=== PATIENT | female | born 1940 | race Caucasian/White ===

== ENCOUNTER → 2016-07-11 | Outpatient (CLI) | payer MEDICARE ==
[2016-07-11 09:00] LABS: Calcium 9.6 mg/dL (8.4-10.2); Potassium 5.2 mmol/L (3.5-5.1)
== END | disposition home or self-care (01) ==
LOC: LABPAT 08:18
PROVIDERS: ATTEND Orthopaedic Surgery
DX: Z01.812 Encounter for preprocedural laboratory examination (principal)
CPT/HCPCS: 80048; 87070

== ENCOUNTER 2016-07-17 06:26 | Inpatient (IN) | payer MEDICARE ==
[2016-07-04 12:16] VITALS: BMI 28.3
--- NOTE | 2016-07-16 09:53 | HP ---
DATE OF ADMISSION: CHIEF COMPLAINT: Left knee pain. HISTORY OF PRESENT ILLNESS: The patient is a 76-year-old retired female who presents with progressive left knee pain, worsening over the past several months. She has tried medications and injections with only partial temporary relief. She notes pain along with giving way bother her daily and limit her function. She does use a cane. PAST MEDICAL HISTORY: Significant for diabetes, hypertension, arthritis and heart disease. PAST SURGICAL HISTORY: Significant for previous carpal tunnel release, hysterectomy and knee surgery. CURRENT MEDICATIONS: 1. Aspirin. 2. Digoxin. 3. Hydrochlorothiazide. 4. Glipizide. 5. Lantus. 6. Tylenol. She notes allergies to PENICILLIN. Family history is noncontributory. SOCIAL HISTORY: Negative for current tobacco or alcohol use. A 16-point review of systems otherwise reviewed and is noncontributory. On examination, the patient is approximately 5 foot 3, 156 pounds of mesomorphic habitus. HEENT exam is nonfocal. Neck is supple. She is nontender about the lumbar spine. She has painless passive motion of left hip. Straight leg raise is negative. Active motion left knee -8 to 105 degrees of flexion. She is tender about the medial joint line. Collaterals are stable, Elsy is negative, Joseph's elicits medial pain. She has genu varum alignment. Her distal neurovascular exam appears intact in the left lower extremity. Previous weight-bearing, notch, lateral, and merchant views of the left knee obtained in the office show severe medial and patellofemoral compartment narrowing. IMPRESSION: 1. Left knee severe medial and patellofemoral compartment osteoarthrosis. 2. Diabetes. 3. History of heart disease. RECOMMENDATIONS: I talked to the patient at length regarding her treatment options. At this point, she is severely limited because of pain related to her osteoarthrosis despite extensive conservative measures. After thorough discussion, she opts to proceed with surgery. We will plan to proceed with left total knee arthroplasty. Risks and benefits are discussed at length in layman's terms. We will institute DVT prophylaxis postoperatively. The patient underwent preoperative medical evaluation by Dr. Diaz in addition to a her planer hand, Dr. Marquez Coronado.
[~2016-07-17 06:26] MED LIST: ACETAMINOPHEN TAB 500 MG TAB PO ONE; CLINDAMYCIN 900 MG in DEXTROSE 5% IN WATER 50 ML IVPB ONE; HYDROmorphone 1 MG/ML 1 ML SYRINGE IVP PRN; MELOXICAM 7.5 MG TAB PO ONE; MIDAZOLAM 2 MG/2 ML VIAL IV PRN; ONDANSETRON 4 MG/2 ML VIAL IVP ONE; TRANEXAMIC ACID 1,000 MG in SODIUM CHLORIDE 0.9% 100 ML IVPB ONE
[2016-07-17] MEDS: LACTATED RINGERS 1,000 ML IV SCH (06:53)
[2016-07-17] MEDS ORDERED: LIDOCAINE 1% 20 ML VIAL (10MG/ML) FOR IV START INTRADERMA ONE (06:53)
[2016-07-17 07:04] LABS: Glucose,Whole Blood 121 mg/dL (75-99)
[2016-07-17] MEDS ORDERED: ROPIVACAINE 246.25 MG, EPINEPHrine 0.5 MG, KETOROLAC 30 MG, cloNIDine HCL/PF 80 MCG, WA... MISCELLANE ONE ×5 (07:56)
[2016-07-17] MEDS ORDERED: PROPOFOL 10 MG/ML 20 ML VIAL IV ONE (07:58)
[2016-07-17] MEDS ORDERED: MIDAZOLAM 2 MG/2 ML VIAL ONE (07:58)
[2016-07-17] MEDS ORDERED: ePHEDrine 50 MG/ML 1 ML AMP ONE (07:58)
[2016-07-17] MEDS ORDERED: SODIUM CHLORIDE 0.9% 100 ML BAG ONE (07:58)
[2016-07-17] MEDS ORDERED: TRANEXAMIC ACID 1,000 MG/10 ML VIAL ONE (07:58)
[2016-07-17] MEDS ORDERED: fentaNYL (PF) 50 MCG/ML 2 ML AMP ONE (07:58)
[2016-07-17] MEDS ORDERED: CLINDAMYCIN 1,800 MG in SODIUM CHLORIDE 0.9% IRRIGATIO 3,000 ML IRRIGATION ONE (08:25)
[2016-07-17] MEDS ORDERED: ROPIVACAINE 1,100 MG, SODIUM CHLORIDE 0.9% 330 ML MISCELLANE PRN ×2 (08:25)
--- NOTE | 2016-07-17 08:27 | P.ONQ ---
Anesthesiology Proc Note - PNB - Peripheral Nerve Block Performed Left Adductor Canal Infusion Indication: Acute Post-Operative Pain, Dx/Pain Location (Left knee) Specifically requested for management of pain by : Garland Dockery Sedation Type: Sedate with meaningful contact maintained Preparation: Sterile Dressing Position: Supine Catheter: Indwelling Needle Types: Other (see comment) (Pajunk) Needle Size: 100mm (4") Technique: Ultrasound Injectate: 0.5% Ropivacaine (see comment for volume) (30cc) Blood Aspirated: No Pain Paresthesia on Injection Noted: No Resistance on Injection: Normal Events: Uneventful and Well Tolerated
[2016-07-17] MEDS ORDERED: LACTATED RINGERS 1,000 ML IV ONE ×2 (09:17)
[2016-07-17] MEDS ORDERED: ONDANSETRON 4 MG/2 ML VIAL IVP PRN (09:41)
[2016-07-17] MEDS ORDERED: HYDROcodone/APAP 5-325MG 1 EACH TAB PO PRN (09:41)
[2016-07-17] MEDS ORDERED: MAGNESIUM HYDROXIDE 2,400 MG/10 ML CUP PO PRN (09:41)
[2016-07-17] MEDS ORDERED: HYDROmorphone 1 MG/ML 1 ML SYRINGE IVP PRN ×2 (09:41)
[2016-07-17] MEDS ORDERED: NALOXONE 0.4 MG/ML 1 ML VIAL IV PRN (09:41)
[2016-07-17] MEDS ORDERED: traMADol 50 MG TAB PO PRN (09:41)
--- NOTE | 2016-07-17 09:53 | P.DS ---
Providers Date of admission: 07/17/16 06:26 Expected date of discharge: 07/19/16 Attending physician: Garland Dockery Consults: 07/17/16 09:41 Consult Physician Routine Consulting Provider: Ana Simental Consult Reason/Comments: Medical management Do you want consulting provider notified?: Yes Primary care physician: Dasia Diaz [facility] Course: Date of admission: 07/17/2016 Date of discharge: 07/19/2016 Admission diagnosis: Status post left total knee arthroplasty Discharge diagnosis: Same Attending physician: Dr. Dockery Surgical procedures: Left total knee arthroplasty Brief history: Patient is a 76-year-old female with a history of progressive primary left knee osteoarthritis. At this point patient has failed conservative treatment measures and has opted to proceed with a elective left total knee arthroplasty. Hospital course: Details of patient's surgery can be found in operative report. Patient tolerated the procedure well and was subsequently transported to orthopedic floor. Patient's orthopeidc and medical care was provided daily. Patient had daily laboratory tests performed for evaluation of overall blood counts. Patient had daily physical therapy to include strengthening range of motion as well as education with walker ambulation. Patient had daily CPM usage as part of their physical therapy program. Patient was treated with Xarelto for their postoperative DVT prophylaxis during their inpatient stay. Patient was noted to have a relatively uneventful postoperative course. Patient reported satisfactory pain control with oral pain medications by postoperative day 0. Patient showed satisfactory progress with physical therapy. Patient moved steadily through the program and had no difficulty meeting the goals by postoperative day 2. Given patient's otherwise satisfactory course and having met physical therapy goals, plan is to discharge patient home on postoperative day 2. Discharge condition/disposition: Patient will be discharged home in stable condition. Discharge medications: Instructions are given on resumption of patient's normal daily medications per primary care recommendation, in addition patient will be prescribed [place] 5mg/325, Tramadol 50mg, Colace 100mg, Pepcid 20mg, Xarelto 10mg. Discharge instructions: 1. Wound care and infection precautions, keep incision dry and covered while showering, no lotions, creams, moisturizers. No soaking, tubs, pools, hottubs. Do not scrub over the incision. 2. Weight-bear as tolerated with walker / cane until follow-up. 3. Ice and elevate when necessary. Do not exceed 20 minutes per hour with ice pack. 4. Utilize compression sleeve until seen at first follow up appointment. 5. Visiting nursing care. 6. Home physical therapy [including home CPM]. 7. Pain meds and anticoagulants per prescription. 8. Pain medication has potential to cause constipation. Increase oral fluid and fiber intake. Contact primary care provider if you have not had a bowel movement within 48 hours after discharge 9. No anti-inflammatory medication until discussed at first post operative visit, this including Motrin, Aleve, Mobic, Diclofenac. 10. Follow up in office at 2 weeks postop with Kelechi Hines PA-C 11. Follow up with your primary care doctor 7-10 days after discharge. 12. Contact [facility] with any questions, . Procedures: Left total knee arthroplasty Patient Condition at Discharge: Good Plan - Discharge Summary New Discharge Prescriptions: New Rivaroxaban [Xarelto] 10 mg PO DAILY #12 tab Docusate [Colace] 100 mg PO DAILY #30 capsule Famotidine [Pepcid] 20 mg PO DAILY #30 tablet Hydrocodone/Acetaminophen [[place] 5-325] 1 - 2 each PO Q6HR PRN #60 tab PRN Reason: Pain traMADol HCl [Ultram] 50 mg PO Q6H PRN #40 tab PRN Reason: Pain No Action metFORMIN HCL [Glucophage] 1,000 mg PO BID Insulin Glargine [Lantus] 25 unit SQ HS Aspirin 81 mg PO DAILY glipiZIDE [Glucotrol] 5 mg PO DAILY Lisinopril-Hctz 20-25 mg [Zestoretic 20-25] 1 tab PO DAILY metFORMIN HCL [Metformin HCl] 500 mg PO DAILY@1200,1800 Cholecalciferol (Vitamin D3) [Vitamin D3] 2,000 unit PO DAILY Acetaminophen Tab [Tylenol Tab] 1,000 mg PO Q6HR PRN PRN Reason: Pain Sulfamethox-Tmp 800-160Mg [Bactrim DS 800-160 mg] 1 tab PO Q12HR Discharge Medication List Aspirin 81 mg PO DAILY 12/11/13 [History] Insulin Glargine [Lantus] 25 unit SQ HS 12/11/13 [History] glipiZIDE [Glucotrol] 5 mg PO DAILY 12/11/13 [History] metFORMIN HCL [Glucophage] 1,000 mg PO BID 12/11/13 [History] Acetaminophen Tab [Tylenol Tab] 1,000 mg PO Q6HR PRN 07/04/16 [History] Cholecalciferol (Vitamin D3) [Vitamin D3] 2,000 unit PO DAILY 07/04/16 [History] Lisinopril-Hctz 20-25 mg [Zestoretic 20-25] 1 tab PO DAILY 07/04/16 [History] Sulfamethox-Tmp 800-160Mg [Bactrim DS 800-160 mg] 1 tab PO Q12HR 07/04/16 [ History] metFORMIN HCL [Metformin HCl] 500 mg PO DAILY@1200,1800 07/04/16 [History] Rivaroxaban [Xarelto] 10 mg PO DAILY #12 tab 07/17/16 [Rx] Docusate [Colace] 100 mg PO DAILY #30 capsule 07/19/16 [Rx] Famotidine [Pepcid] 20 mg PO DAILY #30 tablet 07/19/16 [Rx] Hydrocodone/Acetaminophen [[place] 5-325] 1 - 2 each PO Q6HR PRN #60 tab 07/19/16 [Rx] traMADol HCl [Ultram] 50 mg PO Q6H PRN #40 tab 07/19/16 [Rx] Follow up Appointment(s)/Referral(s): Shawn Hines PAC [PHYSICIAN [employer]Y [employer]NER] - 1 Week Activity/Diet/Wound Care/Special Instructions: Orthopedic Discharge Instructions: 1. Wound care and infection precautions, keep incision dry and covered while showering, no lotions, creams, moisturizers. No soaking, pools, hot tubs. Do not scrub over incision. 2. Weight-bear as tolerated with walker / cane until follow-up. 3. Ice and elevate when necessary. Do not exceed 20 minutes per hour with ice pack. 4. Utilize compression sleeve until seen at first follow up appointment. 5. Visiting nursing care. 6. Home physical therapy including home CPM. 7. Pain meds and anticoagulants per prescription. 8. Pain medication has potential to cause constipation. Increase oral fluid and fiber intake. Contact primary care provider if you have not had a bowel movement within 48 hours after discharge. 9. No anti-inflammatory medication until discussed at first post operative visit, this including Motrin, Aleve, Mobic, Diclofenac. 10. Follow up in office at 2 weeks postop with Kelechi Hines PA-C 11. Follow up with your primary care doctor 7-10 days after discharge. 12. Contact [facility] with any questions, . Rose Marie has been authorized-YULISSA#[id number], copay is $18, can pickle maker at [facility] at discharge. Discharge Disposition: HOME WITH HOME HEALTH SERVICES
[2016-07-17 10:12] LABS: Glucose,Whole Blood 165 mg/dL (75-99)
--- NOTE | 2016-07-17 10:14 | P.OP ---
Date of Procedure: 07/17/16 Preoperative Diagnosis: Severe left knee tricompartmental osteoarthrosis Postoperative Diagnosis: Same Procedure(s) Performed: Left total knee arthroplasty/cemented/cruciate retaining Implants: Depuy Attune size 4 narrow cemented femoral component, size 3 cemented tibial component, 9 mm articular surface, 32 mm cemented patellar component. Anesthesia: MAC, regional, local Surgeon: Garland Dockery .Net Programmer #1: Shawn Hines Estimated Blood Loss (ml): 30 Pathology: other (Bone fragments) Condition: stable Disposition: PACU Indications for Procedure: The patient's a 76-year-old female who presents with progressive left knee pain secondary to osteoarthrosis despite conservative measures. A discussion of the risks and benefits of operative intervention versus continued conservative measures was made with patient. She opted to proceed with surgery. Operative risks to include infection, neurovascular injury, development of blood clots, possible component loosening, possible component failure need for subsequent procedures was discussed. Informed consent was obtained. Operative Findings: As below Description of Procedure: The patient was brought to the operating room, and after induction of spinal anesthesia the left lower extremity was prepped and draped in normal fashion. The tourniquet was inflated to 270 mmHg. A longitudinal incision extending 3 finger breaths above the superior pole of patella was then made extending to the medial aspect the tibial tubercle. A medial parapatellar arthrotomy was performed. The medial soft tissues to include the superficial and deep portions the medial collateral ligament as well as the medial hamstring tendons were elevated subperiosteally. The proximal medial tibial osteophytes were carefully removed. The patella was everted. A portion of the retropatellar fat pad was excised sharply. The anterior cruciate ligament was sacrificed. A starting hole was made in the distal femur 1 cm anterior to the posterior cruciate ligament origin. An intramedullary femoral guide was then gently inserted planning on 5 valgus distal cut with 9 mm distal resection. The cutting block was pinned in place. The distal cut was then made. The posterior referencing sizing guide was utilized. I felt size 4 was most appropriate. 3 of external rotation was built into the system and verified off the trans-epicondylar axis and the posterior condyles. The cutting block was pinned in place. The anterior, posterior, and chamfer cuts were then made. Bone fragments were removed. The notch guide was utilized and the notch cut made. The trial size 4 femoral component was placed and was fully seated. There was good anterior to posterior and medial to lateral fit. The distal peg holes were then drilled. The trial component was then removed. Attention was then paid towards preparing the proximal tibia. The extra medullary guide was in line with the tibial shaft and second metatarsal distally. I planned on 2 mm resection from the medial compartment. The cutting block was pinned in place. The posterior cruciate ligament was protected with a retractor. The proximal tibial cut was then made. An additional 2 mm was resected as the flexion and extension gaps were tight. The tibia sized most appropriate size 3. Remnants of the medial lateral menisci were excised the capsule junction with electrocautery. The trial femoral and tibial components were placed along with a 9 mm articular surface. I was able to obtain full flexion and extension with good stability with varus and valgus stress. After several flexion and extension cycles the tibial rotation was marked with electrocautery in line with the medial one third of the tibial tubercle. Attention was then paid towards preparing the patella. A patella reamer was utilized taking this down to 14 mm of bone stock. A good flush cut was made. The patella sized most appropriately at 32 mm. The peg holes were drilled. The trial components placed. The knee was taken through range of motion. I good patellofemoral tracking with no hands technique. The trial components were then removed. The posterior osteophytes of the distal femur were carefully removed with a curved osteotome. The tibia was prepared in the appropriate rotation with appropriate drill and keel punch. The flexion and extension gaps were checked and felt to be symmetric. The posterior soft tissues were injected with ropivacaine. The bony surfaces were prepared with pulsatile lavage and then dried. The tibial component was then cemented in placed and was fully seated. Excess cement was removed. The femoral component cemented in placed and was fully seated. Excess cement was removed. The trial 9 mm articular surface was placed and the knee was put in full extension. The patella component cemented in placed and was fully seated. Excess cement was removed. After the cement had sufficiently hardened, the knee was again taken through range of motion. Again I was able to obtain full flexion and extension with good stability with varus and valgus stress. The trial 9 mm articular surface was removed and the final one inserted. This was fully seated. Care was taken to avoid any soft tissue interposition. Pulsatile lavage was again utilized. The medial parapatellar arthrotomy was closed with #2 Ethibond suture. A deep drain was placed exiting laterally. The tourniquet was deflated the proximal a 70 minutes total tourniquet time. The subcutaneous tissues reapproximated interrupted 2-0 Vicryl sutures. The skin was reapproximated with 3-0 subcuticular strata fix suture. Skin tape and adhesive was applied. A sterile dressing was applied. The patient was awoken from sedation and transferred to recovery room in good condition. Blood loss was estimated 30 mL. No complications were incurred. Sponge and needle counts were correct at the end the case.
--- NOTE | 2016-07-17 10:26 | XR ---
EXAMINATION TYPE: XR knee limited LT DATE OF EXAM ORDERED: 07/17/2016 HISTORY: Left knee arthroplasty. COMPARISON: None. FINDINGS: A left knee arthroplasty has been performed. Prosthetic elements appear in good position. One surgical drain is in place. There is subcutaneous and intra-articular air. IMPRESSION: STATUS POST LEFT ARTHROPLASTY.
[2016-07-17 11:44] LABS: Glucose,Whole Blood 208 mg/dL (75-99)
[2016-07-17 13:14] VITALS: RESP 16
--- NOTE | 2016-07-17 13:50 | P.CONS ---
History of Present Illness - Reason for Consult Consult date: 07/17/16 Medical management Requesting physician: Garland Dockery - Chief Complaint Left knee osteoarthritis - History of Present Illness This is a 76-year-old female with past medical history noted below significant for severe left knee osteoarthritis that failed conservative management. Patient was admitted to the hospital and underwent elective total left knee arthroplasty. She is postoperative day #0. She is awake and alert today. She does not have any specific concerns or complaints. I was asked to see her for medical management. Review of Systems Review of system: 14 points review of systems were obtained and were negative except to what were mentioned in the HPI. Past Medical History Past Medical History: Diabetes Mellitus, Hyperlipidemia, Hypertension, Osteoarthritis (OA), Supraventricular Tachycardia (SVT) Additional Past Medical History / Comment(s): SVT 12/2013, HAD ABLATION. VARICOSE VEINS. CURRENT UTI, ON PO AB RX. History of Any Multi-Drug Resistant Organisms: None Reported Past Surgical History: Ablation, Hysterectomy Additional Past Surgical History / Comment(s): CARDIAC ABLATION 12/2013. COLONOSCOPY. Past Anesthesia/Blood Transfusion Reactions: No Reported Reaction Past Psychological History: No Psychological Hx Reported Smoking Status: Never smoker Past Alcohol Use History: None Reported Past Drug Use History: None Reported - Past Family History Father Family Medical History: Deep Vein Thrombosis (DVT), Pulmonary Embolus Medications and Allergies Home Medications Medication Instructions Recorded Confirmed Type Aspirin 81 mg PO DAILY 12/11/13 07/17/16 History Insulin Glargine [Lantus] 25 unit SQ HS 12/11/13 07/17/16 History glipiZIDE [Glucotrol] 5 mg PO DAILY 12/11/13 07/17/16 History metFORMIN HCL [Glucophage] 1,000 mg PO BID 12/11/13 07/17/16 History Acetaminophen Tab [Tylenol Tab] 1,000 mg PO Q6HR PRN 07/04/16 07/17/16 History Cholecalciferol (Vitamin D3) 2,000 unit PO DAILY 07/04/16 07/17/16 History [Vitamin D3] Lisinopril-Hctz 20-25 mg 1 tab PO DAILY 07/04/16 07/17/16 History [Zestoretic 20-25] Sulfamethox-Tmp 800-160Mg [Bactrim 1 tab PO Q12HR 07/04/16 07/17/16 History DS 800-160 mg] metFORMIN HCL [Metformin HCl] 500 mg PO DAILY@1200,1800 07/04/16 07/17/16 History Allergies Allergy/AdvReac Type Severity Reaction Status Date / Time Penicillins Allergy Severe Swelling, Verified 07/04/16 11:41 hives Glmuwtd-Ciu-Iti Reductase AdvReac Severe "CHARLEY-HORSES Verified 07/04/16 11:41 Inhibitor IN LEGS" Physical Exam Vitals: Vital Signs Temp Pulse Pulse Pulse Resp BP BP 07/17/16 12:45 90 115/55 07/17/16 12:30 87 111/45 07/17/16 12:15 75 109/60 07/17/16 12:00 68 119/55 07/17/16 11:45 69 116/67 07/17/16 11:30 97.5 F L 80 16 115/60 07/17/16 10:45 76 18 110/55 07/17/16 10:30 81 16 109/60 07/17/16 10:19 80 16 109/54 07/17/16 10:04 98 F 90 16 110/54 07/17/16 06:40 97.6 F 85 16 192/84 Pulse Ox 07/17/16 12:45 98 07/17/16 12:30 98 07/17/16 12:15 98 07/17/16 12:00 98 07/17/16 11:45 98 07/17/16 11:30 98 07/17/16 10:45 97 07/17/16 10:30 94 L 07/17/16 10:19 95 07/17/16 10:04 97 07/17/16 06:40 100 Intake and Output 07/16/16 07/17/16 07/17/16 22:59 06:59 14:59 Intake Total 500 1007 Output Total 320 Balance 500 687 Intake: IV 500 1007 Output: Urine 290 Estimated Blood Loss 30 Other: Weight 72.575 kg Patient Weight 07/18/16 06:59 Weight 72.575 kg General: The patient is awake and alert, in no distress Eye: there is normal conjunctiva bilaterally. Neck: The neck is supple, there is no JVD. Cardiovascular: Normal S1-S2, no S3-S4, no murmurs. Respiratory: Lungs clear to auscultation bilaterally Gastrointestinal: Abdomen is soft, nontender Musculoskeletal: There is no pedal edema. Neurological:. Speech is normal. Skin: Skin is warm and dry Results CBC & Chem 7: 07/17/16 06:50 Labs: Abnormal Lab Results - Last 24 Hours (Table) 07/17/16 07/17/16 07/17/16 Range/Units 06:49 10:09 11:38 POC Glucose (mg/dL) 121 H 165 H 208 H (75-99) mg/dL Assessment and Plan Plan: 1. Severe osteoarthritis of the left knee postoperative day #1 status post total left knee arthroplasty 2. DVT prophylaxis with Rivaroxaban per orthopedic protocol 3. Type 2 diabetes mellitus: Continue home dose of Lantus. Hold oral agents for now 4. Essential hypertension: Blood pressure well controlled Today, I reviewed her medication list and lab work results. Continue current regimen. Thank you very much for the consultation. I will continue to follow up on the patient closely.
[2016-07-17] MEDS: CLINDAMYCIN 900 MG in DEXTROSE 5% IN WATER 50 ML IVPB SCH ×4 (15:23→21:05)
[2016-07-17 16:50] LABS: Glucose,Whole Blood 319 mg/dL (75-99)
[2016-07-17] MEDS: INSULIN LISPRO (humaLOG) 300 UNIT/3 ML VIAL SQ SCH ×2 (17:56→21:06)
[2016-07-17 20:42] LABS: Glucose,Whole Blood 271 mg/dL (75-99)
[2016-07-17] MEDS: SENNOSIDES-DOCUSATE SODIUM 1 EACH TAB PO SCH (21:05)
[2016-07-17] MEDS: INSULIN GLARGINE 100 UNIT/ML 10 ML VIAL SQ SCH (21:10)
[2016-07-18 07:00] LABS: Glucose,Whole Blood 159 mg/dL (75-99)
[2016-07-18 07:20] LABS: Basophils % (A) 0 %; CH 27.5; Eosinophils % (A) 0 %; HCT 28.4 % (34.0-46.0); HDW 2.64; HGB 9.3 gm/dL (11.4-16.0); Luc # (Auto) 0.26; Luc % (Auto) 3; Lymphocytes # (A) 2.1 k/uL (1.0-4.8); Lymphocytes % (A) 25 %; MCH 27.2 pg (25.0-35.0); MCHC 32.6 g/dL (31.0-37.0); MCV 83.4 fL (80.0-100.0); Mean Platelet Volume 7.3; Monocytes # (A) 0.5 k/uL (0-1.0); Monocytes % (A) 6 %; Neutrophils # (A) 5.6 k/uL (1.3-7.7); Neutrophils % (A) 66 %; RBC 3.41 m/uL (3.80-5.40); RDW 13.7 % (11.5-15.5); WBC 8.5 k/uL (3.8-10.6); WBC (Perox) 8.59
[2016-07-18 07:36] LABS: Anion Gap 5 mmol/L; Blood Urea Nitrogen 19 mg/dL (7-17); Calcium 8.5 mg/dL (8.4-10.2); Carbon Dioxide 27 mmol/L (22-30); Chloride 101 mmol/L (98-107); Glucose 140 mg/dL (74-99); Non-African American GFR(MDRD) >60 (>60 ml/min/1.73 sqM); Potassium 4.1 mmol/L (3.5-5.1); Sodium 133 mmol/L (137-145)
[2016-07-18] MEDS: ACETAMINOPHEN TAB 325 MG TAB PO PRN ×2 (07:54→14:49)
[2016-07-18] MEDS: CHOLECALCIFEROL 1,000 UNIT TAB PO SCH (07:55)
[2016-07-18] MEDS: LISINOPRIL-HCTZ 20-25 MG 1 EACH TAB PO SCH (07:55)
[2016-07-18] MEDS: RIVAROXABAN 10 MG TAB PO SCH (07:55)
[2016-07-18] MEDS: INSULIN LISPRO (humaLOG) 300 UNIT/3 ML VIAL SQ SCH ×4 (08:15→21:56)
[2016-07-18] MEDS: FAMOTIDINE 20 MG TAB PO SCH (09:56)
--- NOTE | 2016-07-18 11:06 | P.PN ---
Subjective Patient is doing fairly well today. She was up with physical therapy earlier with no difficulty. Pain is well controlled. Objective - Vital Signs Vital signs: Vital Signs Temp 97.6 F 07/18/16 07:00 Pulse 65 07/18/16 07:00 Resp 16 07/18/16 07:00 BP 103/56 07/18/16 07:00 Pulse Ox 95 07/18/16 07:00 Intake & Output 07/17/16 07/18/16 07/18/16 18:59 06:59 18:59 Intake Total 1167 660 240 Output Total 1070 390 200 Balance 97 270 40 Weight 72.575 kg Intake: IV 1007 Intake, IV Titration 160 480 Amount Lactated Ringers 1,000 ml 160 480 @ 40 mls/hr IV .Q24H [facility] Rx#:[id number] Oral 180 240 Output: Drainage 40 Left Knee 40 Urine 1040 350 200 Uretheral (Russo) 200 Estimated Blood Loss 30 Other: Voiding Method Indwelling Catheter Indwelling Catheter Indwelling Catheter - Exam General: The patient is awake and alert, in no distress Eye: there is normal conjunctiva bilaterally. Neck: The neck is supple, there is no JVD. Cardiovascular: Normal S1-S2, no S3-S4, no murmurs. Respiratory: Lungs clear to auscultation bilaterally Gastrointestinal: Abdomen is soft, nontender Musculoskeletal: There is no pedal edema. Neurological:. Speech is normal. Skin: Skin is warm and dry - Labs CBC & Chem 7: 07/18/16 06:56 07/18/16 06:56 Labs: Abnormal Lab Results - Last 24 Hours (Table) 07/17/16 07/17/16 07/17/16 Range/Units 11:38 16:48 20:37 RBC (3.80-5.40) m/uL Hgb (11.4-16.0) gm/dL Hct (34.0-46.0) % Sodium (137-145) mmol/L BUN (7-17) mg/dL Glucose (74-99) mg/dL POC Glucose (mg/dL) 208 H 319 H 271 H (75-99) mg/dL 07/18/16 07/18/16 07/18/16 Range/Units 06:56 06:56 06:58 RBC 3.41 L (3.80-5.40) m/uL Hgb 9.3 L (11.4-16.0) gm/dL Hct 28.4 L (34.0-46.0) % Sodium 133 L (137-145) mmol/L BUN 19 H (7-17) mg/dL Glucose 140 H (74-99) mg/dL POC Glucose (mg/dL) 159 H (75-99) mg/dL Assessment and Plan Plan: 1. Severe osteoarthritis of the left knee postoperative day #1 status post total left knee arthroplasty 2. DVT prophylaxis with Rivaroxaban per orthopedic protocol 3. Type 2 diabetes mellitus: Continue home dose of Lantus. Hold oral agents for now 4. Essential hypertension: Blood pressure well controlled Today, I reviewed her medication list and lab work results. Continue current regimen. Thank you very much for the consultation. I will continue to follow up on the patient closely.
[2016-07-18 11:18] LABS: Glucose,Whole Blood 158 mg/dL (75-99)
--- NOTE | 2016-07-18 11:24 | P.PN ---
Subjective Principal diagnosis: Status post left total knee arthroplasty Patient is seen today resting in her hospital chair, she appears comfortable. Patient's pain is well-controlled. She's ambulated well at this point. She denies any headaches, lightheadedness, chest pain, shortness of breath, fever or chills. Objective - Vital Signs Vital signs: Vital Signs Temp 97.6 F 07/18/16 07:00 Pulse 65 07/18/16 07:00 Resp 16 07/18/16 07:00 BP 103/56 07/18/16 07:00 Pulse Ox 95 07/18/16 07:00 Intake & Output 07/17/16 07/18/16 07/18/16 18:59 06:59 18:59 Intake Total 1167 660 240 Output Total 1070 390 200 Balance 97 270 40 Weight 72.575 kg Intake: IV 1007 Intake, IV Titration 160 480 Amount Lactated Ringers 1,000 ml 160 480 @ 40 mls/hr IV .Q24H MARLO Rx#:[id number] Oral 180 240 Output: Drainage 40 Left Knee 40 Urine 1040 350 200 Uretheral (Russo) 200 Estimated Blood Loss 30 Other: Voiding Method Indwelling Catheter Indwelling Catheter Indwelling Catheter - Exam Left lower extremity: Incision is clean, dry and intact. Calf is soft, no tenderness with palpation. Plantar flexion, dorsiflexion, EHL, FHL are intact. Sensory exam to light touch is intact throughout the lower extremity, cap refills less than 2 seconds. - Labs CBC & Chem 7: 07/18/16 06:56 07/18/16 06:56 Labs: Abnormal Lab Results - Last 24 Hours (Table) 07/17/16 07/17/16 07/17/16 Range/Units 11:38 16:48 20:37 RBC (3.80-5.40) m/uL Hgb (11.4-16.0) gm/dL Hct (34.0-46.0) % Sodium (137-145) mmol/L BUN (7-17) mg/dL Glucose (74-99) mg/dL POC Glucose (mg/dL) 208 H 319 H 271 H (75-99) mg/dL 07/18/16 07/18/16 07/18/16 Range/Units 06:56 06:56 06:58 RBC 3.41 L (3.80-5.40) m/uL Hgb 9.3 L (11.4-16.0) gm/dL Hct 28.4 L (34.0-46.0) % Sodium 133 L (137-145) mmol/L BUN 19 H (7-17) mg/dL Glucose 140 H (74-99) mg/dL POC Glucose (mg/dL) 159 H (75-99) mg/dL 07/18/16 Range/Units 11:16 RBC (3.80-5.40) m/uL Hgb (11.4-16.0) gm/dL Hct (34.0-46.0) % Sodium (137-145) mmol/L BUN (7-17) mg/dL Glucose (74-99) mg/dL POC Glucose (mg/dL) 158 H (75-99) mg/dL Assessment and Plan Plan: Assessment: 1. Postop day #1 status post left total knee arthroplasty Plan: 1. Pain control, continue use of oral medication 2. Continue work with physical therapy and use of CPM 3. Daily dressing changes/ice and elevate 4. Encourage incentive spirometer 5. GI and DVT prophylaxis, continue Xarelto 10 mg 6. Medical recommendations 7. Discharge planning: Patient will be likely discharged home tomorrow Time with Patient: Less than 30
[2016-07-18 11:55] LABS: Hemoglobin A1C 7.1 % (4.2-6.1)
[2016-07-18 17:05] LABS: Glucose,Whole Blood 140 mg/dL (75-99)
--- NOTE | 2016-07-18 18:27 | P.PN ---
Progress Note - Text The patient is status post left adductor canal catheter placement. The catheter was placed for postoperative pain control, status post total left arthroplasty. Ropivacaine 0.2% is infusing at 8 mLs per hour. The patient has no complaints of left lower extremity numbness or weakness. Patient's VAS score is 0 1-10. Assessment: Patient's adductor canal catheter is in place and working appropriately. Plan: continue infusion and adjust it as needed.
[2016-07-18 21:56] LABS: Glucose,Whole Blood 237 mg/dL (75-99)
[2016-07-18] MEDS: SENNOSIDES-DOCUSATE SODIUM 1 EACH TAB PO SCH (21:56)
[2016-07-18] MEDS: INSULIN GLARGINE 100 UNIT/ML 10 ML VIAL SQ SCH (21:57)
[2016-07-18] MEDS: HYDROcodone/APAP 5-325MG 1 EACH TAB PO PRN (22:00)
[2016-07-19] MEDS: LACTATED RINGERS 1,000 ML IV SCH ×2 (05:06→07:09)
[2016-07-19] MEDS: HYDROcodone/APAP 5-325MG 1 EACH TAB PO PRN ×2 (06:32→13:09)
[2016-07-19 07:21] LABS: Glucose,Whole Blood 159 mg/dL (75-99)
[2016-07-19 07:54] LABS: Anion Gap 6 mmol/L; Blood Urea Nitrogen 16 mg/dL (7-17); Calcium 8.6 mg/dL (8.4-10.2); Carbon Dioxide 27 mmol/L (22-30); Chloride 101 mmol/L (98-107); Glucose 149 mg/dL (74-99); Non-African American GFR(MDRD) >60 (>60 ml/min/1.73 sqM); Sodium 134 mmol/L (137-145)
[2016-07-19] MEDS: INSULIN LISPRO (humaLOG) 300 UNIT/3 ML VIAL SQ SCH ×2 (08:03→12:57)
[2016-07-19] MEDS: CHOLECALCIFEROL 1,000 UNIT TAB PO SCH (08:33)
[2016-07-19] MEDS: FAMOTIDINE 20 MG TAB PO SCH (08:34)
[2016-07-19] MEDS: RIVAROXABAN 10 MG TAB PO SCH (08:34)
[2016-07-19] MEDS: LISINOPRIL-HCTZ 20-25 MG 1 EACH TAB PO SCH (08:34)
--- NOTE | 2016-07-19 09:26 | P.PN ---
Subjective Principal diagnosis: Status post left total knee arthroplasty Patient is seen today resting in her hospital chair, she appears comfortable. Patient has slight increasing pain today. She denies any headaches, lightheadedness, chest pain, shortness of breath, fever or chills. Objective - Vital Signs Vital signs: Vital Signs Temp 98.0 F 07/19/16 07:00 Pulse 73 07/19/16 07:00 Resp 16 07/19/16 07:00 BP 152/66 07/19/16 07:00 Pulse Ox 96 07/19/16 07:00 Intake & Output 07/18/16 07/19/16 07/19/16 18:59 06:59 18:59 Intake Total 900 Output Total 200 Balance 700 Intake: Oral 900 Output: Urine 200 Uretheral (Russo) 200 Other: Voiding Method Toilet - Exam Left lower extremity: Incision is clean, dry and intact. Calf is soft, no tenderness with palpation. Plantar flexion, dorsiflexion, EHL, FHL are intact. Sensory exam to light touch is intact throughout the lower extremity, cap refills less than 2 seconds. - Labs CBC & Chem 7: 07/18/16 06:56 07/19/16 07:17 Labs: Abnormal Lab Results - Last 24 Hours (Table) 07/18/16 07/18/16 07/18/16 Range/Units 06:56 11:16 17:03 Sodium (137-145) mmol/L Glucose (74-99) mg/dL POC Glucose (mg/dL) 158 H 140 H (75-99) mg/dL Hemoglobin A1c 7.1 H (4.2-6.1) % 07/18/16 07/19/16 07/19/16 Range/Units 21:54 07:09 07:17 Sodium 134 L (137-145) mmol/L Glucose 149 H (74-99) mg/dL POC Glucose (mg/dL) 237 H 159 H (75-99) mg/dL Hemoglobin A1c (4.2-6.1) % Assessment and Plan Plan: Assessment: 1. Postop day #2 status post left total knee arthroplasty Plan: 1. Pain control, continue use of oral medication 2. Continue work with physical therapy and use of CPM 3. Daily dressing changes/ice and elevate 4. Encourage incentive spirometer 5. GI and DVT prophylaxis, continue Xarelto 10 mg 6. Medical recommendations 7. Discharge planning: Patient will be discharged home today
--- NOTE | 2016-07-19 11:07 | P.PN ---
Progress Note - Text The patient is status post left adductor canal catheter placement. The catheter was placed for postoperative pain control, status post total left arthroplasty. Ropivacaine 0.2% is infusing at 8 mLs per hour. The patient has no complaints of left lower extremity numbness or weakness. Patient's VAS score is 1-10. Assessment: Patient's adductor canal catheter is in place and working appropriately. Plan: continue infusion and adjust it as needed.
[2016-07-19 12:08] LABS: Glucose,Whole Blood 185 mg/dL (75-99)
--- NOTE | 2016-07-19 13:39 | P.PN ---
Subjective Patient is doing fairly well today. She is looking forward to be discharged home. Objective - Vital Signs Vital signs: Vital Signs Temp 98.0 F 07/19/16 07:00 Pulse 73 07/19/16 07:00 Resp 16 07/19/16 07:00 BP 152/66 07/19/16 07:00 Pulse Ox 96 07/19/16 07:00 Intake & Output 07/18/16 07/19/16 07/19/16 18:59 06:59 18:59 Intake Total 900 Output Total 200 Balance 700 Intake: Oral 900 Output: Urine 200 Uretheral (Russo) 200 Other: Voiding Method Toilet Toilet - Exam General: The patient is awake and alert, in no distress Eye: there is normal conjunctiva bilaterally. Neck: The neck is supple, there is no JVD. Cardiovascular: Normal S1-S2, no S3-S4, no murmurs. Respiratory: Lungs clear to auscultation bilaterally Gastrointestinal: Abdomen is soft, nontender Musculoskeletal: There is no pedal edema. Neurological:. Speech is normal. Skin: Skin is warm and dry - Labs CBC & Chem 7: 07/18/16 06:56 07/19/16 07:17 Labs: Abnormal Lab Results - Last 24 Hours (Table) 07/18/16 07/18/16 07/19/16 Range/Units 17:03 21:54 07:09 Sodium (137-145) mmol/L Glucose (74-99) mg/dL POC Glucose (mg/dL) 140 H 237 H 159 H (75-99) mg/dL 07/19/16 07/19/16 Range/Units 07:17 12:05 Sodium 134 L (137-145) mmol/L Glucose 149 H (74-99) mg/dL POC Glucose (mg/dL) 185 H (75-99) mg/dL Assessment and Plan Plan: 1. Severe osteoarthritis of the left knee postoperative day #2 status post total left knee arthroplasty 2. DVT prophylaxis with Rivaroxaban per orthopedic protocol 3. Type 2 diabetes mellitus: Continue home dose of Lantus. Hold oral agents for now 4. Essential hypertension: Blood pressure well controlled Patient is medically cleared for discharge home.
[2016-07-19 15:18] VITALS: BP 172/77; PULSE 84; TEMP 97.8
== END 2016-07-19 16:58 | disposition home health service (06) | DRG 470 ==
LOC: 2ORMAIN 06:26 → 3SUR 10:04
PROVIDERS: ADMIT Orthopaedic Surgery; ATTEND Orthopaedic Surgery
PROC: 0SRD0J9 Replacement of Left Knee Joint with Synthetic Substitute, Cemented, Open Approach (ICD-10-PCS; principal; 2016-07-17 08:00)
DX: M17.12 Unilateral primary osteoarthritis, left knee (principal); E11.9 Type 2 diabetes mellitus without complications; I10 Essential (primary) hypertension; E78.5 Hyperlipidemia, unspecified; M21.162 Varus deformity, not elsewhere classified, left knee; Z79.4 Long term (current) use of insulin; Z79.82 Long term (current) use of aspirin; Z88.0 Allergy status to penicillin; Z79.899 Other long term (current) drug therapy
CPT/HCPCS: 80048; 83036; 84132; 85025; 88300

== ENCOUNTER → 2021-04-20 | Outpatient (CLI) | payer MEDICARE ==
--- NOTE | 2021-04-20 22:24 | CT ---
EXAMINATION TYPE: CT abdomen pelvis wo con DATE OF EXAM: 04/20/2021 COMPARISON: None HISTORY: R flank pain x [address] DLP: 622.8 mGycm Automated exposure control for dose reduction was used. Images obtained from the diaphragm to the floor the pelvis without contrast. Lung bases show mild subsegmental atelectasis left lower lobe. There is no pleural effusion. Heart si ze is normal. There is no pericardial effusion. Liver spleen and stomach appear intact. There is sing le calcified gallstone. The bile ducts are not dilated. There is no pancreatic mass. There is no adrenal mass. Kidneys have normal size. There is no hydronephrosis. Ureters are not dilat ed. There is no retroperitoneal adenopathy. Bladder distends smoothly. There is no inguinal hernia. T here is no free fluid in the pelvis. The lumbar vertebrae have fairly normal alignment. There is degenerative disc space narrowing through out the lumbar spine. There is no compression fracture. There is a minimal degenerative first-degree L4-5 spondylolisthesis. The bony pelvis is intact. The hip joints are intact. There is no mesenteric edema. There is no ascites or free air. There is no bowel obstruction. Appendi x not definitely seen. No sign of thickened appendix. There is some mild retained fecal material in t he large bowel. IMPRESSION: There is some mild constipation. No bowel obstruction. Appendix not seen. No evidence of renal stone or obstruction. Cholelithiasis.
== END | disposition home or self-care (01) ==
LOC: RADCTMAIN 18:41
PROVIDERS: ATTEND Internal Medicine
DX: K59.00 Constipation, unspecified (principal); K80.20 Calculus of gallbladder without cholecystitis without obstruction
CPT/HCPCS: 74176

== ENCOUNTER → 2022-05-18 | Outpatient (CLI) | payer MEDICARE ==
--- NOTE | 2022-05-18 12:59 | US ---
EXAMINATION TYPE: US gallbladder DATE OF EXAM: 05/18/2022 COMPARISON: CT 04/20/2021 CLINICAL HISTORY: R10.9 ABD PAIN. Abdominal pain x couple months. Hx appendectomy. TECHNIQUE: Multiple sonographic images of the right upper quadrant are obtained. FINDINGS: EXAM MEASUREMENTS: Liver Length: 15.0 cm Gallbladder Wall: 0.25 cm CBD: Obscured Right Kidney: 9.4 x 4.5 x 4.5 cm SAP BW ARCHITECT NOTES: Exam is limited due to overlying bowel gas. Pancreas: Not well seen. Liver: Limited due to gas and rib shadow. Some imaging was performed intercostally. Appears coarse w ith increased echogenicity. Gallbladder: Hyperechoic focus with posterior shadowing seen within the gallbladder: 0.8 x 0.7 x 0.5 cm. Evidence for sonographic Galeas's sign: No CBD: Obscured Right Kidney: Complex area seen upper pole-? question dilated upper collecting system versus other m easurin.4 x 1.2 x 2.1 cm. Pancreas is poorly visualized due to overlying bowel gas. Limited evaluation of the liver due to over lying bowel gas and rib shadow. Appears coarse with increased echogenicity. No focal lesion identifie d. Gallstone identified within the gallbladder. Per plate filler, negative sonographic Galeas sign. No wall thickening or pericholecystic fluid. Common bile duct is obscured by overlying bowel gas. Quest ionable complex areas seen within the upper pole of the right kidney as described above. IMPRESSION: 1. Questionable complex area versus renal sinus fat within the upper pole of the right kidney. Follo w-up CT or MR abdomen renal mass protocol is recommended to exclude underlying lesion. 2. Hepatic steatosis. 3. Cholelithiasis without evidence for acute cholecystitis.
== END | disposition home or self-care (01) ==
LOC: RADUSWWP 12:06
PROVIDERS: ATTEND Family Medicine
DX: K80.20 Calculus of gallbladder without cholecystitis without obstruction (principal); K76.0 Fatty (change of) liver, not elsewhere classified
CPT/HCPCS: 76705

== ENCOUNTER → 2022-06-11 | Outpatient (CLI) | payer MEDICARE ==
--- NOTE | 2022-06-12 07:36 | MR ---
EXAMINATION TYPE: MR abdomen wo/w con DATE OF EXAM: 06/11/2022 COMPARISON: Gallbladder ultrasound May 18, 2022. CT abdomen and pelvis April 20, 2021 HISTORY: Extreme pain in rt side, hx of kidney stones. Recent abnormal ultrasound. CONTRAST: Standard multiplanar, multisequence MRI departmental protocol images were obtained without contrast a nd with 7.5 mL intravenous Gadavist gadolinium contrast. Imaging performed of the abdomen focusing o n the bilateral kidneys. FINDINGS: Kidneys: Renal sizes are symmetric and felt within normal limits. Incidental 5 mm benign thin-walled cyst posteriorly lower pole level left kidney coronal image 30. No concerning solid or cystic renal m ass or hydronephrosis is seen bilaterally with particular attention to the right kidney upper pole le vicente at area of recent concern on ultrasound. Other: Lung bases are grossly clear. Gallbladder has internal 3 mm round lesion suspected small stone axial image 35. Gallbladder is contracted. No surrounding fluid or fat stranding seen. No biliary di latation. Spleen and both adrenal glands appear within normal limits. No suspicious small or large prisca wel dilatation. No intra-abdominal ascites. No AAA. Osseous structures are intact. There is oval T1 h yperintense and T2 hypointense lesion in the lateral right breast axial image 49 series 701 measuring 10 x 5 mm suspicious for proteinaceous cyst. Correlate clinically. Consider diagnostic ultrasound a nd mammogram follow-up based on clinical correlation. IMPRESSION: No concerning renal mass or hydronephrosis seen bilaterally. No acute findings are eviden t to account for patient's symptoms of extreme right-sided pain.
== END | disposition home or self-care (01) ==
LOC: RADMRIMAIN 17:43
PROVIDERS: ATTEND Family Medicine
DX: N28.89 Other specified disorders of kidney and ureter (principal)
CPT/HCPCS: 74183; A9585

== ENCOUNTER → 2022-07-13 | Outpatient (CLI) | payer MEDICARE ==
--- NOTE | 2022-07-13 10:23 | USB ---
Reason for Exam: Clinical finding. Patient History: Menarche at age 14. First Full-Term at age 23. Left ovary removed at age 47. Right ovary removed at age 47. Hysterectomy at age 47. Postmenopausal. Estrogen for 15 years until age 63. 1988, Excisional Biopsy on the Right side. Risk Values: Shelby 5 year model risk: 1.7%. NCI Lifetime model risk: 2.7%. Technique: Method: Whole Breast Handheld. Prior Study Comparison: 01/14/2006 Right Diagnostic Mammogram, [facility]. 07/04/2006 Right Diagnostic Mammogram, [facility]. 01/28/2007 Bilateral Diagnostic Mammogram, [facility]. Findings: The whole breast of both breasts, the axilla of both breasts and the retroareolar of both breasts were scanned. A complete US of all four quadrants of the bilateral breasts and retro-areolar region were reviewed. There is a 5 x 3 x 5 mm oval hypoechoic avascular lesion without posterior acoustic features and 9:00 position 2 cm distance from nipple. Lesion too small to further characterize favored benign. There is a 10 x 8 x 12 mm irregular hypoechoic shadowing lesion 11:00 position right breast 5 cm distance from nipple. Benign-appearing right axillary lymph node is seen. Benign-appearing subcentimeter lymph node at 3:00 position left breast is felt present. There is a 6 x 5 x 5 mm round hypoechoic avascular lesion 12:00 position 5 cm distance from nipple left breast 2 small to definitively characterize favored benign. Incidental subcentimeter benign appearing left axillary lymph node. Overall Assessment: Incomplete: need additional imaging evaluation, BI-RAD 0 Management: Diagnostic Mammogram of the right breast. Advise diagnostic right breast mammogram correlation due to suspicious lesion 11:00 position under ultrasound. Results were given to the patient verbally at the time of exam. Electronically signed and approved by: Jean Carlos Ascencio M.D.
--- NOTE | 2022-07-13 10:50 | MM ---
Reason for Exam: Clinical finding. Last mammogram was performed 15 year(s) and 6 month(s) ago. Patient History: Menarche at age 14. First Full-Term at age 23. Left ovary removed at age 47. Right ovary removed at age 47. Hysterectomy at age 47. Postmenopausal. Estrogen for 15 years until age 63. 1989, Excisional Biopsy on the Right side. Risk Values: Shelby 5 year model risk: 1.7%. NCI Lifetime model risk: 2.7%. Prior Study Comparison: 01/14/2006 Right Diagnostic Mammogram, [facility]. 07/04/2006 Right Diagnostic Mammogram, [facility]. 01/28/2007 Bilateral Diagnostic Mammogram, [facility]. Tissue Density: Right: There are scattered fibroglandular densities. Findings: Analyzed By CAD. Large dystrophic calcification upper outer right breast corresponds to area of concern on ultrasound which was present on 2005 mammogram. There are additional benign-appearing rounded dystrophic calcifications scattered throughout the right breast. Mammotome biopsy clip in the right breast lower aspect is noted. Overall Assessment: Benign, BI-RAD 2 Management: Screening Mammogram of both breasts in 5 months. Return to routine follow-up. Results were given to the patient verbally at the time of exam. Patient should continue monthly self-breast exams. A clinical breast exam by your physician is recommended on an annual basis. This exam should not preclude additional follow-up of suspicious palpable abnormalities. Note on Shelby scores and lifetime risk: 1. A Shelby score greater than 3% is considered moderate risk. If this is the case, consider specialist referral to assess eligibility for a risk reducing agent. 2. If overall lifetime risk for the development of breast cancer is 20% or higher, the patient may qualify for future screening with alternating mammogram and breast MRI. Electronically signed and approved by: Jean Carlos Ascencio M.D.
== END | disposition home or self-care (01) ==
LOC: RADUSWWP 09:23
PROVIDERS: ATTEND Family Medicine
DX: N60.01 Solitary cyst of right breast (principal); Z78.0 Asymptomatic menopausal state
CPT/HCPCS: 77065

== ENCOUNTER → 2023-01-22 | Outpatient (CLI) | payer MEDICARE ==
--- NOTE | 2023-01-22 11:07 | USB ---
Reason for Exam: Follow-up at short interval from prior study. Patient History: Menarche at age 14. First Full-Term at age 23. Left ovary removed at age 47. Right ovary removed at age 47. Hysterectomy at age 47. Postmenopausal. Estrogen for 15 years until age 63. 1988, Excisional Biopsy on the Right side. Risk Values: Shelby 5 year model risk: 1.7%. NCI Lifetime model risk: 2.7%. Technique: Method: Targeted. Prior Study Comparison: 07/04/2006 Right Diagnostic Mammogram, [facility]. 01/28/2007 Bilateral Diagnostic Mammogram, [facility]. 07/13/2022 Right MG diagnostic mammo RT w CAD, [facility]. Findings: The upper section of the breast of the right breast, the axilla of the right breast and the retroareolar of the right breast were scanned. There is an echogenic foci with posterior shadowing 11:00 position 5 cm from the nipple. A measurement length is off from the calcification although the breasts are very mobile which may account for the shift. This area appears stable from comparison. The 11:00 position is a node 7 cm from nipple. Note appears normal. There is reidentification of a small hypoechoic area 9:00 position 2 cm.. Overall Assessment: Probably benign, BI-RAD 3 Management: Diagnostic Mammogram of the right breast in 6 months. Diagnostic Breast Ultrasound of the right breast in 6 months. A clinical breast exam by your physician is recommended on an annual basis and results should be correlated with mammographic findings. This exam should not preclude additional follow-up of suspicious palpable abnormalities. Results were given to the patient verbally at the time of exam. Electronically signed and approved by: Pravin Hawkins D.O. Radiologis
--- NOTE | 2023-01-22 11:07 | MM ---
Reason for Exam: Follow-up at short interval from prior study. Last mammogram was performed 16 year(s) and 0 month(s) ago. Patient History: Menarche at age 14. First Full-Term at age 23. Left ovary removed at age 47. Right ovary removed at age 47. Hysterectomy at age 47. Postmenopausal. Estrogen for 15 years until age 63. 1988, Excisional Biopsy on the Right side. Risk Values: Shelby 5 year model risk: 1.7%. NCI Lifetime model risk: 2.7%. Tissue Density: There are scattered fibroglandular densities. Findings: Analyzed By CAD. Pattern appears symmetrical. There is a focal asymmetry within the lateral mid right craniocaudal view. There is a focal asymmetry within the mid lateral right craniocaudal view. This appears somewhat persistent on craniocaudal compression view. Ultrasound is recommended for additional evaluation. Multiple punctate calcifications are adjacent to the large benign coarse calcification. These appear to be stable present previously. Left breast: No suspicious groups of microcalcifications, spiculated or lobular masses, architectural distortion or other secondary signs of malignancy are mammographically apparent. Overall Assessment: Incomplete: need additional imaging evaluation, BI-RAD 0 Management: Diagnostic Breast Ultrasound of the right breast. A negative mammogram report should not preclude additional follow up of suspicious palpable abnormalities. Patient should continue monthly self breast exam. A clinical breast exam by your physician is recommended on an annual basis and results should be correlated with mammographic findings. Electronically signed and approved by: Pravin Hawkins D.O. Radiologis
== END | disposition home or self-care (01) ==
LOC: RADMAMWWP 09:18
PROVIDERS: ATTEND Family Medicine
DX: R92.323 Mammographic fibroglandular density, bilateral breasts (principal); Z78.0 Asymptomatic menopausal state
CPT/HCPCS: 77066; 76642; G0279; 77062

== ENCOUNTER → 2023-06-21 | Outpatient (CLI) | payer MEDICARE ==
--- NOTE | 2023-06-21 13:00 | MM ---
Reason for Exam: Follow-up at short interval from prior study. Last screening mammogram was performed 5 month(s) ago. Patient History: Menarche at age 14. First Full-Term at age 23. Left ovary removed at age 47. Right ovary removed at age 47. Hysterectomy at age 47. Postmenopausal. Estrogen for 15 years until age 63. 1988, Excisional Biopsy on the Right side. Risk Values: Shelby 5 year model risk: 1.7%. NCI Lifetime model risk: 2.5%. Prior Study Comparison: 01/28/2007 Bilateral Diagnostic Mammogram, [facility]. 07/13/2022 Right MG diagnostic mammo RT w CAD, [facility]. 01/22/2023 Bilateral MG 3D diag mammo w/cad [facility], [facility]. Tissue Density: Right: There are scattered areas of fibroglandular density. Findings: Analyzed By CAD. Fat necrosis calcifications in adjacent upper outer quadrant regional calcifications are unchanged. Coarse calcifications far posterior central on the MLO view are unchanged. 2 microclips from prior biopsies are unchanged. Asymmetric density lateral at a middle depth remains unchanged for 6 months. This can continue to be followed. The questioned area of central outer asymmetric density has become less defined. Overall Assessment: Incomplete: need additional imaging evaluation, BI-RAD 0 Management: Diagnostic Breast Ultrasound of the right breast. Electronically signed and approved by: Sachin Pineda M.D. Radiologist
--- NOTE | 2023-06-21 13:29 | USB ---
Reason for Exam: Follow-up at short interval from prior study. Patient History: Menarche at age 14. First Full-Term at age 23. Left ovary removed at age 47. Right ovary removed at age 47. Hysterectomy at age 47. Postmenopausal. Estrogen for 15 years until age 63. 1988, Excisional Biopsy on the Right side. Risk Values: Shelby 5 year model risk: 1.7%. NCI Lifetime model risk: 2.5%. Technique: Method: Targeted. Prior Study Comparison: 01/28/2007 Bilateral Diagnostic Mammogram, [facility]. 07/13/2022 Right MG diagnostic mammo RT w CAD, [facility]. 01/22/2023 Right US breast limited RT, [facility]. 01/22/2023 Bilateral MG 3D diag mammo w/cad [facility], [facility]. Findings: The upper outer quadrant of the right breast, the axilla of the right breast and the retroareolar of the right breast were scanned. Ultrasound upper outer quadrant right breast including scanning of the subareolar region and axilla. At the 11:00 position, 5 cm from the nipple, there is dense shadowing calcification compatible with the patient's dystrophic or fat necrosis calcifications on mammogram measuring 1.2 cm. The previously seen small 5 mm nodularity at the 9:00 position is no longer seen. No other solid or cystic lesion or axillary lymphadenopathy. Overall Assessment: Probably benign, BI-RAD 3 Management: Diagnostic Mammogram of both breasts in 7 months. Total one-year follow-up right breast and annual exam of the left breast. A clinical breast exam by your physician is recommended on an annual basis and results should be correlated with mammographic findings. This exam should not preclude additional follow-up of suspicious palpable abnormalities. Results were given to the patient verbally at the time of exam. Electronically signed and approved by: Sachin Pineda M.D. Radiologist
== END | disposition home or self-care (01) ==
LOC: RADMAMWWP 12:37
PROVIDERS: ATTEND Family Medicine
DX: R92.321 Mammographic fibroglandular density, right breast (principal); Z78.0 Asymptomatic menopausal state; R92.1 Mammographic calcification found on diagnostic imaging of breast
CPT/HCPCS: 77065; 76642; G0279; 77061

== ENCOUNTER 2023-07-23 06:10 | Day surgery (SDC) | payer MEDICARE ==
[2023-07-23 06:50] LABS: Glucose,Whole Blood 144 mg/dL (70-110)
[2023-07-23 06:57] VITALS: TEMP 98.1
[2023-07-23] MEDS: LACTATED RINGERS 1,000 ML IV SCH (06:57)
[2023-07-23] MEDS ORDERED: PROPOFOL 10 MG/ML 20 ML VIAL IV ONE (07:15)
[2023-07-23] MEDS ORDERED: LIDOCAINE 1% INJ 10MG/ML (20 ML MDV) ONE (07:15)
--- NOTE | 2023-07-23 07:35 | P.PCN ---
Date of Procedure: 07/23/23 Procedure(s) Performed: Brief history: Patient is a pleasant 83-year-old white female scheduled for an elective upper endoscopy as well as colonoscopy as a part of evaluation of GERD and intermittent lower abdominal pain for the last few months duration Procedure performed: Esophagogastroduodenoscopy with biopsy Colonoscopy Preoperative diagnosis: Longstanding history of GERD Intermittent lower abdominal pain Anesthesia: MAC Procedure: After informed consent was obtained from the patient was brought into the endoscopy unit and IV sedation was administered by anesthesia under continuous monitoring. Initially upper endoscopy was done. The Olympus GF 160 video endoscope was inserted inserted into the mouth and esophagus intubated without any difficulty and was gradually advanced into the stomach and duodenum and carefully examined. The bulb and second part of the duodenum appeared normal. The scope was then withdrawn into the stomach adequately insufflated with air and upon careful examination the antrum had mild gastritis and biopsies were done from this area. Mucosa of the body, cardia and fundus appeared normal. The scope was then withdrawn into the esophagus. The GE junction was located at 40 cm to the incisors. It appeared regular with no erythema erosions or ulcerations. Rest of the esophagus appeared normal. Patient tolerated the procedure well. At this time the patient continued to remain sedation. Initial digital rectal examination was normal. Olympus CF 160 video colonoscope was then inserted into the rectum and gradually advanced to the cecum without any difficulty. Careful examination was performed as the scope was gradually being withdrawn. The prep was excellent. The cecum, ascending colon, transverse colon, descending colon, sigmoid colon and rectum appeared normal. Retroflexion was performed in the rectum and no lesions were noted. . Patient tolerated the procedure well. Impression: 1. Upper endoscopy revealed mild antral gastritis but no evidence of esophagitis or Asher's esophagus 2. Colonoscopy was within normal limits with no evidence of colorectal neoplasia Recommendations: Findings of this examination were discussed with the patient as well as her family. She was advised to follow-up with the biopsy results. Continue with a high-fiber diet and fiber supplements on a regular basis. Follow-up in the office in 2 weeks.
[2023-07-23 07:43] LABS: Glucose,Whole Blood 133 mg/dL (70-110)
[2023-07-23 07:48] VITALS: BP 119/69; PULSE 68; RESP 17
== END 2023-07-23 08:09 | disposition home or self-care (01) ==
LOC: ORWHC2ENDO 06:10
PROVIDERS: ATTEND Internal Medicine Gastroenterology
DX: K29.50 Unspecified chronic gastritis without bleeding (principal); K21.9 Gastro-esophageal reflux disease without esophagitis; R10.30 Lower abdominal pain, unspecified; I10 Essential (primary) hypertension; E78.5 Hyperlipidemia, unspecified; E11.9 Type 2 diabetes mellitus without complications; Z86.73 Personal history of transient ischemic attack (TIA), and cerebral infarction without residual deficits; Z79.84 Long term (current) use of oral hypoglycemic drugs; Z79.82 Long term (current) use of aspirin; Z79.899 Other long term (current) drug therapy; Z88.0 Allergy status to penicillin; Z88.8 Allergy status to other drugs, medicaments and biological substances; Z90.710 Acquired absence of both cervix and uterus; Z98.890 Other specified postprocedural states; Z79.4 Long term (current) use of insulin
CPT/HCPCS: 88305; 45378; 43239; J2001; J2704

== ENCOUNTER → 2024-01-23 | Outpatient (CLI) | payer MEDICARE ==
--- NOTE | 2024-01-23 09:56 | MM ---
Reason for Exam: Follow-up at short interval from prior study. Last screening mammogram was performed 12 month(s) ago. Patient History: Menarche at age 14. First Full-Term at age 23. Left ovary removed at age 47. Right ovary removed at age 47. Hysterectomy at age 47. Postmenopausal. Estrogen for 15 years until age 63. 1988, Excisional Biopsy on the Right side. Risk Values: Shelby 5 year model risk: 1.7%. NCI Lifetime model risk: 2.5%. Prior Study Comparison: 07/13/2022 Right MG diagnostic mammo RT w CAD, [facility]. 07/13/2022 Right US breast BILAT, [facility]. 01/22/2023 Right US breast limited RT, [facility]. 01/22/2023 Bilateral MG 3D diag mammo w/cad ANDERS, [facility]. 06/21/2023 Right MG 3D diag mammo w/cad RT, [facility]. 06/21/2023 Right US breast limited RT, [facility]. Tissue Density: There are scattered areas of fibroglandular density. Findings: Analyzed By CAD. The pattern is symmetrical. Scattered benign calcifications are present. Coarse calcifications are right breast. No significant interval change. No suspicious groups of microcalcifications, spiculated or lobular masses, architectural distortion or other secondary signs of malignancy are mammographically apparent. Overall Assessment: Benign, BI-RAD 2 Management: Screening Mammogram of both breasts in 1 year. A negative mammogram report should not preclude additional follow up of suspicious palpable abnormalities. Patient should continue monthly self breast exam. A clinical breast exam by your physician is recommended on an annual basis and results should be correlated with mammographic findings. Note on Shelby scores and lifetime risk: 1. A Shelby score greater than 3% is considered moderate risk. If this is the case, consider specialist referral to assess eligibility for a risk reducing agent. 2. If overall lifetime risk for the development of breast cancer is 20% or higher, the patient may qualify for future screening with alternating mammogram and breast MRI. [facility], , 01/23/2024 9:53 AM. Electronically signed and approved by: Pravin Hawkins D.O. Radiologis
== END | disposition home or self-care (01) ==
LOC: RADMAMWWP 09:22
PROVIDERS: ATTEND Family Medicine
DX: R92.8 Other abnormal and inconclusive findings on diagnostic imaging of breast (principal); Z90.722 Acquired absence of ovaries, bilateral; Z78.0 Asymptomatic menopausal state; R92.323 Mammographic fibroglandular density, bilateral breasts
CPT/HCPCS: 77066; G0279; 77062

== ENCOUNTER → 2024-08-05 | Outpatient (CLI) | payer MEDICARE ==
--- NOTE | 2024-08-05 08:22 | US ---
EXAMINATION TYPE: US abdomen limited DATE OF EXAM: 08/05/2024 COMPARISON: None CLINICAL INDICATION: Female, 84 years old with history of R10.9 UNSPECIFIED ABDOMINAL PAIN; hx gall s tone from previous radiology exam. Right side pain. TECHNIQUE: Grayscale and color Doppler imaging of the right upper quadrant was performed. FINDINGS: EXAM MEASUREMENTS: Liver Length: 13.9 cm Gallbladder Wall: 0.1 cm CBD: 0.4 cm Right Kidney: 8.9 x 3.8 x 4.8 cm Pancreas: Tail obscured by overlying bowel gas, echogenic Liver: wnl Gallbladder: Mobile echogenic focus = 0.8 x 0.6 cm Evidence for sonographic Galeas's sign: neg CBD: wnl Right Kidney: No hydronephrosis or masses seen IMPRESSION: 1. Cholelithiasis. [facility], , 08/05/2024 8:20 AM
[2024-08-05 15:12] LABS: HCT 38.4 % (37.2-46.3); HGB 11.5 g/dL (12.0-15.0); MCHC 29.9 g/dL (32.0-37.0); MCV 86.7 FL (80.0-97.0); Mean Platelet Volume 11.2 FL (9.5-12.2); NRBC Per 100 WBC 0 X 10*3/uL (0.00-0.01); Platelet Count 280 X 10*3/uL (140-440); RBC 4.43 X 10*6/uL (4.10-5.20); RDW 14.6 % (11.5-14.5); WBC 13.42 X 10*3/uL (4.50-10.00)
[2024-08-05 15:29] LABS: ALT 20 U/L (8-44); AST 20 U/L (13-35); Alkaline Phosphatase 103 U/L (41-126); BUN/Creat Ratio 19.17 Ratio (12.00-20.00); Calcium 9.3 mg/dL (8.7-10.3); Carbon Dioxide 28.5 mmol/L (21.6-31.8); Chloride 100 mmol/L (96-109); Globulin 2.5 g/dL (1.6-3.3); Glucose 123 mg/dL (70-110); Potassium 4.3 mmol/L (3.5-5.5); Sodium 140 mmol/L (135-145); Total Bilirubin 0.3 mg/dL (0.3-1.2); Total Protein 6.5 g/dL (6.2-8.2)
[2024-08-05 15:40] LABS: Basophils # (M) 0.27 X 10*3/uL (0.00-0.10); Eosinophils # (M) 0.54 X 10*3/uL (0.04-0.35); Monocytes # (M) 0.67 X 10*3/uL (0.20-1.00); Neutrophils # (M) 6.04 X 10*3/uL (1.80-7.70); Neutrophils % (M) 45 %; RBC Morphology Normal (Normal)
== END | disposition home or self-care (01) ==
LOC: RADUSWWP 07:17
PROVIDERS: ATTEND Internal Medicine Gastroenterology
DX: K80.20 Calculus of gallbladder without cholecystitis without obstruction (principal)
CPT/HCPCS: 76705; 80053; 85025

== ENCOUNTER → 2024-08-19 | Outpatient (CLI) | payer MEDICARE ==
--- NOTE | 2024-08-19 14:15 | US ---
EXAMINATION TYPE: US kidneys/renal and bladder DATE OF EXAM: 08/19/2024 COMPARISON: 04/20/2021 CLINICAL INDICATION: Female, 84 years old with history of N18.31 CHRONIC KIDNEY DISEASE, STAGE 3A; TECHNIQUE: Grayscale imaging of the bilateral kidneys and urinary bladder: FINDINGS: EXAM MEASUREMENTS: Right Kidney: 8.5x3.9x4.5 cm Left Kidney: 10.4x4.6x4.0 cm slightly limited due to rib shadow and overlying gas Right Kidney: No hydronephrosis or masses seen Left Kidney: No hydronephrosis or masses seen Bladder: wnl Bilateral Jets seen: Yes IMPRESSION: No evidence for obstructive uropathy or renal calculus. [facility], , 08/19/2024 2:12 PM
== END | disposition home or self-care (01) ==
LOC: RADUSWWP 13:39
PROVIDERS: ATTEND Family Medicine
DX: N18.31 Chronic kidney disease, stage 3a (principal)
CPT/HCPCS: 76770

== ENCOUNTER → 2024-09-03 | Outpatient (CLI) | payer MEDICARE ==
[2024-09-04 02:21] LABS: HCT 37.5 % (37.2-46.3); HGB 11.4 g/dL (12.0-15.0); MCH 26.1 pg (27.0-32.0); MCHC 30.4 g/dL (32.0-37.0); MCV 85.8 FL (80.0-97.0); NRBC Per 100 WBC 0 X 10*3/uL (0.00-0.01); Platelet Count 289 X 10*3/uL (140-440); RBC 4.37 X 10*6/uL (4.10-5.20); RDW 15.2 % (11.5-14.5); WBC 15.56 X 10*3/uL (4.50-10.00)
[2024-09-04 03:00] LABS: ALT 19 U/L (8-44); AST 18 U/L (13-35); Albumin 4.1 g/dL (3.8-4.9); Albumin/Globulin Ratio 1.46 Ratio (1.60-3.17); Alkaline Phosphatase 93 U/L (41-126); Anion Gap 15.90 mmol/L (4.00-12.00); BUN/Creat Ratio 26.33 Ratio (12.00-20.00); Blood Urea Nitrogen 31.6 mg/dL (9.0-27.0); Calcium 9.6 mg/dL (8.7-10.3); Carbon Dioxide 24.1 mmol/L (21.6-31.8); Chloride 102 mmol/L (96-109); Globulin 2.8 g/dL (1.6-3.3); Glucose 107 mg/dL (70-110); Potassium 4.4 mmol/L (3.5-5.5); Sodium 142 mmol/L (135-145); Total Protein 6.9 g/dL (6.2-8.2)
[2024-09-04 04:48] LABS: Basophils # (M) 0 X 10*3/uL (0.00-0.10); Eosinophils # (M) 0.47 X 10*3/uL (0.04-0.35); Lymphocytes # (M) 7.94 X 10*3/uL (0.90-5.00); Monocytes # (M) 0.47 X 10*3/uL (0.20-1.00); Neutrophils # (M) 6.69 X 10*3/uL (1.80-7.70); Neutrophils % (M) 43 %; Smudge Cells Present (Absent)
== END | disposition home or self-care (01) ==
LOC: LABWHC1 15:37
PROVIDERS: ATTEND Nurse Practitioner Family
DX: R10.9 Unspecified abdominal pain (principal)
CPT/HCPCS: 36415; 80053; 85025